=== PATIENT | female | born 1965 | race Caucasian/White ===

== ENCOUNTER 2020-12-25 16:06 | Outpatient (REF) | payer BC, SELFPAY ==
--- NOTE | ~2020-12-25 | XR_ITS ---
EXAMINATION: XR CERVICAL SPINE CLINICAL INFORMATION: Cervical radiculopathy COMPARISON: Previous MRI and CT of the cervical spine May 2017 and x-ray January 2016 TECHNIQUE: 4 views of the cervical spine, inclusive of flexion and extension views, were obtained. FINDINGS: Bone alignment is normal. No fracture or dislocation is seen. There are postsurgical changes with anterior cervical disc fusion at C6-C7. Orthopedic hardware appears unchanged. No instability on flexion-extension views is seen. There is degenerative spondylosis and degenerative disc disease at C4-C5 C5-C6 and C7-T1. Prevertebral soft tissues are normal. XR/XR cervical spine w flex/ext IMPRESSION: Stable postsurgical changes at C6-C7. No instability on flexion-extension views is seen.
== END 2020-12-25 16:07 | disposition home or self-care (01) ==
LOC: HO.XRAY 16:06
PROVIDERS: PCP Family Medicine; Visit Provider Neurological Surgery
DX: M54.12 Radiculopathy, cervical region (principal)
CPT/HCPCS: 72052

== ENCOUNTER 2023-11-07 09:16 | Outpatient (AMB) | payer BC, SELFPAY ==
--- NOTE | 2023-11-07 09:53 | AM.OFFWIN_ITS ---
Intake Vital Signs 11/07/23 10:08 Height 5 ft 7 in Weight 66.678 kg BMI 23.0 BP 120/76 Blood Pressure Location Lt brachial Position Sitting Pulse 73 Pulse Source Pulse Oximeter Temp 97.8 F Temp Source Temporal Artery Scan Pulse Oximetry (%) 96 Oxygen Delivery Method Room Air Intake Visit Reasons: EP Fever body aches congestion [id number] Intake Note: pt is here today for fever body aches congestion started 1 week Patient Tobacco Use Status: Never used Tobacco Allergies oxycodone Allergy (Unknown, Verified 11/07/23 10:08) itchy No Known Allergies [No Known Allergies*] Allergy (Verified 11/07/23 10:08) Do you need a note to return to daycare/school/sports/work: No HPI HPI Comments History of Present Illness Details 58-year-old female presents with fatigue , malaise, myalgias, congestion, as well as dry cough this has been ongoing for the past week or so. Not improving. at home is now sick with similar symptoms. Patient reports thick yellow/green discharge from the nose. Cough is very uncomfortable. Has noted intermittent wheezing. Denies chest pain, shortness of breath, nausea, vomiting, abdominal pain, diarrhea, headache, vision changes, dizziness and weakness Physical exam significant for Breath sounds diminished on the right and w/ r sided faint expiratory wheeze. Normal BS on the l side. .? History and physical exam concerning for viral illness flu versus COVID versus RSV versus bronchitis. Unlikely pneumonia, PE, ACS, dissection, acute respiratory distress Plan will discharge on doxycycline, Zithromax, prednisone and albuterol inhaler. Educated patient on diagnosis and treatment plan, answered all question, patient verbalizes understanding. At this time patient will be discharged home, advised to return with new or worsening symptoms. Educated on worrisome signs and symptoms and when to return. At this time I feel comfortable discharge home. [facility] Social History Patient Tobacco Use Status: Never used Tobacco Review of Systems Const Details: Constitutional : No Weight loss, No Fever, No Chills, + Fatigue, + Malaise ENT/Mouth : No sore throat, No Rhinorrhea Eyes: No Eye Pain, No Swelling, No Redness Cardiovascular : No Chest Pain, No SOB, No Dyspnea on Exertion, No Orthopnea, No Edema, No Palpitations Respiratory : + Cough, No Sputum, No Wheezing Gastrointestinal : No Nausea, No Vomiting, No Diarrhea, No Constipation, No abdominal Pain, No Hematochezia, No Melena Genitourinary : No Dysuria, No Urinary Frequency, No Hematuria, Musculoskeletal : No joint pain, + Myalgias, No Joint Swelling Skin : No Skin Lesions, No rash Neuro : No Weakness, No Numbness, No Dizziness, No Headache Psych : No Anxiety/Panic, No Depression All other systems reviewed and are negative All systems reviewed & are unremarkable except as noted in HPI and below Physical Exam Vital Signs: Last Vital Signs Temp 97.8 F 11/07/23 10:08 Pulse 73 11/07/23 10:08 BP 120/76 11/07/23 10:08 Pulse Ox 96 11/07/23 10:08 Oxygen Delivery Method Room Air 11/07/23 10:08 BMI result Body Mass Index 23.0 vss Appearance: Alert.? Oriented X3.? No acute distress.?Intermittently coughing during my exam Head: Normocephalic, atraumatic, no step-offs or deformities Throat: WNL. no erythema, edema or abscess. Eyes: Pupils equal, round and reactive to light.? CVS: Normal heart rate and rhythm.? Pulses normal.? Respiratory: No respiratory distress.? Breath sounds diminished on the right and w/ r sided faint expiratory wheeze. Normal BS on the l side. .? Abdomen: Soft and nontender.? Skin: Skin warm and dry.? Normal skin color.? Normal skin turgor.? Extremities: No lower extremity edema.? No calf ttp. 5/5 strength to bilateral upper and lower extremities Neuro: Oriented X 3.? No motor deficit.? No sensory deficit. CN 2-12 intact Assessment & Plan Assessment & Plan (1) Bronchitis: Code(s): J40 - Bronchitis, not specified as acute or chronic Plan Take your medications as prescribed. If you were prescribed antibiotics today, it is important that you take your medication to their entirety, do not skip any doses, do not finish them early. Follow-up with your primary care provider this week. Return to the emergency department with new or worsening symptoms. Such as fevers, chills, chest pain, shortness of breath, nausea, vomiting, dizziness, headache, vision changes, lethargy In case of emergency call 911 Medications: New doxycycline hyclate 100 mg PO BID 14 caps 0RF 7 days azithromycin For 250 mg dose pack: take 500 mg today (day 1), then 250 mg for 4 days (days 2-5) PO 6 tabs 0RF albuterol sulfate 90 mcg/actuation 2 puffs inhalation Q6H PRN 6.7 grams 0RF shortness of breath or wheezing prednisone 40 mg (2 x 20 mg) PO DAILY 10 tabs 0RF 5 days Coding Level of Care Code Est Pt Level 3 (12686) Diagnoses Bronchitis J40
[2023-11-07 10:08] VITALS: BP 120/76; PULSE 73; TEMP 36.6; O2SAT 96; BMI 23.0
== END 2023-11-07 10:31 | disposition home or self-care (01) ==
PROVIDERS: PCP Family Medicine; Visit Provider Physician Assistant
DX: J40 Bronchitis, not specified as acute or chronic (principal)
CPT/HCPCS: 99213